=== PATIENT | female | born 1955 | race Caucasian/White ===

== ENCOUNTER 2018-02-14 11:29 | Outpatient (CLI) | payer OTHER | END 2018-02-14 11:34 | disposition home or self-care (01) | LOC: MAMO-SONO 11:29 | DX: Z12.31 Encounter for screening mammogram for malignant neoplasm of breast (principal); N60.11 Diffuse cystic mastopathy of right breast; N60.12 Diffuse cystic mastopathy of left breast ==

== ENCOUNTER 2018-02-26 13:30 | Outpatient (CLI) | payer OTHER | END 2018-02-26 14:36 | disposition home or self-care (01) | LOC: SONOGRAMA 13:30 | DX: N63.13 Unspecified lump in the right breast, lower outer quadrant (principal); N63.23 Unspecified lump in the left breast, lower outer quadrant; N60.11 Diffuse cystic mastopathy of right breast; N60.12 Diffuse cystic mastopathy of left breast ==

== ENCOUNTER 2018-08-02 11:34 | Outpatient (CLI) | payer OTHER | END 2018-08-02 13:22 | disposition home or self-care (01) | LOC: MAMO-SONO 11:34 | DX: N63.10 Unspecified lump in the right breast, unspecified quadrant (principal); N63.20 Unspecified lump in the left breast, unspecified quadrant; N60.11 Diffuse cystic mastopathy of right breast; N60.12 Diffuse cystic mastopathy of left breast ==

== ENCOUNTER 2018-08-06 13:05 | Outpatient (CLI) | payer OTHER | END 2018-08-06 13:07 | disposition home or self-care (01) | LOC: MAMO-SONO 13:05 | DX: N60.12 Diffuse cystic mastopathy of left breast (principal); N60.11 Diffuse cystic mastopathy of right breast; R92.0 Mammographic microcalcification found on diagnostic imaging of breast ==

== ENCOUNTER 2021-08-19 14:28 | Outpatient (CLI) | payer OTHER | END 2021-08-19 14:31 | disposition home or self-care (01) | LOC: RAD 14:28 | PROVIDERS: ATTEND Internal Medicine | DX: M25.561 Pain in right knee (principal); M25.562 Pain in left knee ==

== ENCOUNTER 2022-11-23 13:26 | Outpatient (CLI) | payer OTHER | END 2022-11-23 13:28 | disposition home or self-care (01) | LOC: NUCLEAR 13:26 | DX: M81.0 Age-related osteoporosis without current pathological fracture (principal) ==

== ENCOUNTER 2025-04-15 11:08 | Outpatient (CLI) | payer OTHER | END 2025-04-15 11:10 | disposition home or self-care (01) | LOC: NUCLEAR 11:08 | DX: M81.0 Age-related osteoporosis without current pathological fracture (principal) ==